=== PATIENT | female | born 1940 | race Caucasian/White ===

== ENCOUNTER → 2018-01-11 | Outpatient (CLI) | payer MEDICARE, BC ==
--- NOTE | 2018-01-11 11:36 | BD ---
EXAMINATION TYPE: MG DEXA axial skeleton. DATE OF EXAM: 01/11/2018 COMPARISON: NONE CLINICAL HISTORY: disorder of bone. Osteoporosis screening. Postmenopausal female. Height: 5'3 Weight: 162 FRAX RISK QUESTIONS: Alcohol (3 or more units per day): no Family History (Parent hip fracture): no Glucocorticoids (More than 3mos): no (Ex: prednisone, prednisolone, methylprednisolone, dexamethasone, and hydrocortisone). History of Fracture in Adulthood: no Secondary Osteoporosis: 1. Type 1 Diabetes: no 2. Hyperthyroidism: no 3. Menopause before 45: no 4. Malnutrition: no 5. Chronic liver disease: no Rheumatoid Arthritis: no Current Tobacco Use: no RISK FACTORS HISTORY OF: Postmenopausal woman: MEDICATIONS: Thyroid Medications: Which medication: Synthroid How Lon years Additional Medications: blood pressure Additional History: skin cancer 2010 EXAM MEASUREMENTS: Bone mineral densitometry was performed using the CiRBA System. Bone mineral density as measured about the Lumbar spine is: ----- L1-L4(G/cm2): 1.144 T Score Values are as follows: ----- L2: -0.5 ----- L3: -0.3 ----- L4: 0.2 ----- L1-L4: -0.3 Bone mineral density about the R hip (g/cm2): 0.812 Bone mineral density about the L hip (g/cm2): 0.859 T Score values are as follows: -----R Neck: -1.6 -----L Neck: -1.3 -----R Total: -1.5 -----L Total: -1.4 IMPRESSION: Osteopenia (T Score between -2.5 and -1) with respect to the bilateral hips. There is slightly increased risk of fracture and the patient may be considered for treatment. Re-Screen 2-5 years. NOTE: T-SCORE=SD OF THE YOUNG ADULT MEAN.
== END | disposition home or self-care (01) ==
LOC: RADBDWWP 10:26
PROVIDERS: ATTEND Family Medicine
DX: M85.852 Other specified disorders of bone density and structure, left thigh (principal); M85.851 Other specified disorders of bone density and structure, right thigh
CPT/HCPCS: 77080

== ENCOUNTER → 2021-07-11 | Outpatient (CLI) | payer MEDICARE, BC ==
--- NOTE | 2021-07-11 11:42 | XR ---
EXAMINATION TYPE: XR chest 2V DATE OF EXAM: 07/11/2021 COMPARISON: Chest x-ray 03/20/2014 HISTORY: R09.89 TECHNIQUE: Frontal and lateral views of the chest are obtained. FINDINGS: There is no focal air space opacity, pleural effusion, or pneumothorax seen. The cardiac silhouette size is within normal limits. Prominent lung volumes suggest possible underlying COPD. The aorta is dense. There is thoracic spondylosis. Mild elevation of the right hemidiaphragm is stable. Some minimal strand-like densities at the lung bases may reflect some atelectasis, scarring, intersti tial changes. The osseous structures are intact. IMPRESSION: There may be some minimal basilar atelectasis or scarring, interstitial changes, correla te for possible COPD. Follow-up as indicated.
== END | disposition home or self-care (01) ==
LOC: RADXRMAIN 09:53
PROVIDERS: ATTEND Family Medicine
DX: R09.89 Other specified symptoms and signs involving the circulatory and respiratory systems (principal)
CPT/HCPCS: 71046

== ENCOUNTER → 2023-05-21 | Outpatient (CLI) | payer MEDICARE ==
--- NOTE | 2023-05-21 18:37 | XR ---
EXAMINATION TYPE: XR chest 2V DATE OF EXAM: 05/21/2023 5:47 PM COMPARISON: Chest radiographs from and 1720 TECHNIQUE: XR chest 2V Frontal and lateral views of the chest. CLINICAL INDICATION:Female, 82 years old with history of M54.6; FINDINGS: Lungs/Pleura: Prominent interstitial lung markings are seen scattered throughout the lungs. No eviden ce of focal consolidation, pneumothorax or pleural effusion. Pulmonary vascularity: Unremarkable. Heart/mediastinum: Cardiomediastinal silhouette is unremarkable. Musculoskeletal: No acute osseous pathology. IMPRESSION: Chronic changes without acute pulmonary process. No significant change from prior.
== END | disposition home or self-care (01) ==
LOC: RADXRMAIN 17:31
PROVIDERS: ATTEND Family Medicine
DX: M54.6 Pain in thoracic spine (principal)
CPT/HCPCS: 71046

== ENCOUNTER → 2023-05-24 | Outpatient (CLI) | payer MEDICARE ==
[2023-05-24 10:32] LABS: NT-Pro-B-Type Natriuretic Pept 89 pg/mL
[2023-05-24 10:34] LABS: African American GFR (CKD) 86 (>60 ml/min/1.73 sqM); Anion Gap 9 mmol/L; Blood Urea Nitrogen 16 mg/dL (7-17); Calcium 9.8 mg/dL (8.4-10.2); Carbon Dioxide 31 mmol/L (22-30); Chloride 97 mmol/L (98-107); Glucose 121 mg/dL (74-99); Non-African American GFR(CKD) 75 (>60 ml/min/1.73 sqM); Potassium 4.3 mmol/L (3.5-5.1); Sodium 137 mmol/L (137-145)
[2023-05-24 15:47] LABS: Basophils # (A) 0.07 X 10*3/uL (0.00-0.10); Basophils % (A) 0.7 %; Eosinophils # (A) 0.15 X 10*3/uL (0.04-0.35); Eosinophils % (A) 1.6 %; HCT 44.8 % (37.2-46.3); HGB 14.4 d/dL (12.0-15.0); Lymphocytes # (A) 2.64 X 10*3/uL (0.90-5.00); Lymphocytes % (A) 28.2 %; MCH 29.9 pg (27.0-32.0); MCHC 32.1 d/dL (32.0-37.0); MCV 93.1 FL (80.0-97.0); Mean Platelet Volume 9.1 FL (9.5-12.2); Monocytes # (A) 0.93 X 10*3/uL (0.20-1.00); Monocytes % (A) 9.9 %; NRBC Per 100 WBC 0 X 10*3/uL (0.00-0.01); Neutrophils # (A) 5.53 X 10*3/uL (1.80-7.70); Neutrophils % (A) 59.3 %; Platelet Count 395 X 10*3/uL (140-440); RBC 4.81 X 10*6/uL (4.10-5.20); RDW 12.3 % (11.5-14.5); WBC 9.35 X 10*3/uL (4.50-10.00)
== END | disposition home or self-care (01) ==
LOC: LABWHC1 09:11
PROVIDERS: ATTEND Family Medicine
DX: I50.9 Heart failure, unspecified (principal)
CPT/HCPCS: 36415; 80048; 83880; 85025

== ENCOUNTER → 2023-06-03 | Outpatient (CLI) | payer MEDICARE ==
[2023-06-03 13:48] LABS: African American GFR (CKD) >90 (>60 ml/min/1.73 sqM); Blood Urea Nitrogen 12 mg/dL (7-17); Non-African American GFR(CKD) 85 (>60 ml/min/1.73 sqM)
--- NOTE | 2023-06-03 19:32 | CT ---
EXAMINATION TYPE: CT abdomen pelvis w con DATE OF EXAM: 06/03/2023 COMPARISON: None INDICATION: Unspecified abdominal pain DLP: 631.40 mGycm, Automated exposure control for dose reduction was used. CONTRAST: 100 ml mL of Isovue 300. Study performed with Oral Contrast TECHNIQUE: Axial images were obtained from above the diaphragm to the pubic rami in the axial plane a t 5 mm thick sections. Reconstructed images are reviewed on the computer in the coronal plane. FINDINGS: Limited CT sections are obtained the lung bases. The lung bases are clear. CT ABDOMEN: Liver: Biliary dilatation is evident. Spleen: Normal Pancreas: Normal Adrenal glands: The adrenal glands are normal. Gallbladder: Not identified. Common bile duct is dilated at 2.3 cm. Kidneys: No masses are evident. No hydronephrosis is present. There is a 2.2 cm cyst on the posteri or lateral left mid kidney. There may be smaller cortical Delayed images were obtained through the k idneys, which remain unremarkable. Aorta: Vascular calcification is within the aorta. Inferior vena cava: Normal. CT PELVIS: Diverticular changes are throughout the colon. No adjacent inflammatory change to suggest acute diver ticulitis. No suspicious dilated loop of bowel is evident. Oral contrast extends to the descending co keiry. Appendix: Normal as visualized. Urinary bladder: Normal. Genitourinary structures: Uterus is normal. Adnexa are normal. Osseous structures: No suspicious lytic or sclerotic lesions. Facet degenerative changes are present. IMPRESSIONS: 1. Biliary dilatation within the liver with a dilated common bile duct extending to the pancreatic h ead. No obstructing etiology is identified. 2. Extensive diverticulosis without acute diverticulitis .
== END | disposition home or self-care (01) ==
LOC: RADCTMAIN 12:17
PROVIDERS: ATTEND Family Medicine
DX: K83.8 Other specified diseases of biliary tract (principal); K57.30 Diverticulosis of large intestine without perforation or abscess without bleeding; R10.9 Unspecified abdominal pain
CPT/HCPCS: 82565; 84520; 74177; 36415; Q9967

== ENCOUNTER → 2024-03-24 | Outpatient (CLI) | payer MEDICARE ==
--- NOTE | 2024-03-24 15:14 | US ---
EXAMINATION TYPE: US venous doppler duplex LE RT DATE OF EXAM: 03/24/2024 2:41 PM COMPARISON: NONE CLINICAL INDICATION: Female, 83 years old with history of R22.41 LOCALIZED SWELLING, MASS AND LUMP, R IGHT LO; Edema right leg for 1 week SIDE PERFORMED: right TECHNIQUE: The lower extremity deep venous system is examined utilizing real time linear array sonog steve with graded compression, doppler sonography and color-flow sonography. VESSELS IMAGED: Common Femoral Vein Deep Femoral Vein Greater Saphenous Vein * Femoral Vein Popliteal Vein Small Saphenous Vein * Proximal Calf Veins (* superficial vessels) Right Leg: no evidence of DVT IMPRESSION: No evidence for DVT within the right lower extremity imaged from the groin to the upper calf.
== END | disposition home or self-care (01) ==
LOC: RADUSWWP 14:20
PROVIDERS: ATTEND Family Medicine
DX: R22.41 Localized swelling, mass and lump, right lower limb (principal)

== ENCOUNTER 2024-05-09 01:28 | Inpatient (IN) | payer MEDICARE ==
[2024-05-09] MEDS: MORPHINE SULFATE 2 MG/ML SYRINGE IVP STA (01:50)
--- NOTE | 2024-05-09 02:19 | ED ---
Fall HPI - General Source: patient, family Mode of arrival: EMS <Laura Bal - Last Filed: 05/09/24 04:08> <Ervin Otoole - Last Filed: 05/09/24 07:27> - General Chief Complaint: Fall Stated Complaint: Fall Time Seen by Provider: 05/09/24 01:40 - History of Present Illness Initial Comments: 83-year-old female brought in by EMS for evaluation post fall. Patient was getting up to walk to the bathroom tonight when she felt dizzy falling over and hitting her head. States that she landed on her face. She is complaining of severe pain to the right shoulder. She denies any loss of consciousness or blood thinners. She admits to soreness in the bilateral lower legs. She denies any nausea, vomiting, vision or hearing changes, numbness, tingling, weakness. No chest pain, difficulty breathing, abdominal pain. (Laura Bal) - Related Data Allergies Allergy/AdvReac Type Severity Reaction Status Date / Time amoxicillin Allergy Rash/Hives Verified 05/09/24 01:32 aspirin Allergy Rash/Hives Verified 05/09/24 01:32 azithromycin [From Zithromax] Allergy Rash/Hives Verified 05/09/24 01:32 captopril [From Capoten] Allergy Rash/Hives Verified 05/09/24 01:32 enalaprilat [From Vasotec] Allergy Rash/Hives Verified 05/09/24 01:32 irbesartan [From Avapro] Allergy Rash/Hives Verified 05/09/24 01:32 oxaprozin [From Daypro] Allergy Rash/Hives Verified 05/09/24 01:32 prochlorperazine Allergy Rash/Hives Verified 05/09/24 01:32 [From Compazine] Review of Systems ROS Other: All systems not noted in ROS Statement are negative. <Laura Bal - Last Filed: 05/09/24 04:08> ROS Other: All systems not noted in ROS Statement are negative. <Ervin Otoole - Last Filed: 05/09/24 07:27> ROS Statement: Those systems with pertinent positive or pertinent negative responses have been documented in the HPI. Past Medical History Past Medical History: Hearing Disorder / Deafness, Hypertension, Thyroid Disorder History of Any Multi-Drug Resistant Organisms: Unobtainable Past Surgical History: Cholecystectomy Past Psychological History: No Psychological Hx Reported Smoking Status: Never smoker Past Alcohol Use History: Occasional Past Drug Use History: None Reported <Laura Bal - Last Filed: 05/09/24 04:08> General Exam Limitations: no limitations General appearance: alert, in no apparent distress Head exam: Present: atraumatic, normocephalic Eye exam: Present: normal appearance, PERRL, EOMI Neck exam: Present: normal inspection. Absent: meningismus Respiratory exam: Absent: respiratory distress Cardiovascular Exam: Present: regular rate Right Shoulder Exam: Present: tenderness. Absent: normal inspection, full ROM Neurological exam: Present: alert, oriented X3 Expanded Eye Response: (4) open spontaneously Motor Response: (6) obeys commands Verbal Response: (5) oriented Alaina Total: 15 Psychiatric exam: Present: normal affect, normal mood Skin exam: Present: abrasion (Abrasions to the face) <Luara Bal - Last Filed: 05/09/24 04:08> Course Vital Signs 05/09/24 05/09/24 01:32 07:01 Temperature 98.2 F Pulse Rate 70 65 Respiratory 18 16 Rate Blood Pressure 148/76 120/69 O2 Sat by Pulse 96 94 L Oximetry Medical Decision Making - Lab Data Result diagrams: 05/09/24 02:33 05/09/24 03:17 <Laura Bal - Last Filed: 05/09/24 04:08> - Lab Data Result diagrams: 05/09/24 02:33 05/09/24 03:17 <Ervin Otoole - Last Filed: 05/09/24 07:27> - Medical Decision Making Was pt. sent in by a medical professional or institution (, PA, UTILITY WORKER [employer], urgent care, hospital, or shelter...) When possible be specific @ -[No] Did you speak to anyone other than the patient for history (EMS, parent, family, police, friend...)? What history was obtained from this source @ -[No] Did you review nursing and triage notes (agree or disagree)? Why? @ -[I reviewed and agree with nursing and triage notes] Were old charts reviewed (outside hosp., previous admission, EMS record, old EKG, old radiological studies, urgent care reports/EKG's, shelter records)? Report findings @ -[No old charts were reviewed] Differential Diagnosis (chest pain, altered mental status, abdominal pain women, abdominal pain men, vaginal bleeding, weakness, fever, dyspnea, syncope, headache, dizziness, GI bleed, back pain, seizure, CVA, palpatations, mental health, musculoskeletal)? @ -Differential Musculoskeletal Muscular strain, contusion, ligament sprain, fracture, arthritis, septic arthritis, bursitis, cellulitis, muscle spasm, nerve compression, DVT, arterial occlusion, herpes zoster, electrolyte abnormality, tumor.... This is not meant to be in all inclusive list EKG interpreted by me (3pts min.). @ -EKG shows sinus rhythm with first-degree AV block. Ventricular rate 68. NH interval 236. QRS 88. QT 413. QTc 430. X-rays interpreted by me (1pt min.). @ -Shoulder x-ray shows displaced fracture involving the surgical neck of the proximal humerus with displacement in relation to the humeral head CT interpreted by me (1pt min.). @ -CT brain and C-spine without contrast is pending U/S interpreted by me (1pt. min.). @ -[None done] What testing was considered but not performed or refused? (CT, X-rays, U/S, labs)? Why? @ -[None] What meds were considered but not given or refused? Why? @ -[None] Did you discuss the management of the patient with other professionals (prof essionals i.e. , PA, [employer], lab, RT, psych nurse, social media director, kinesiology internship, teacher, stream control officer, family service caseworker)? Give summary @ -[No] Was smoking cessation discussed for >3mins.? @ -[No] Was critical care preformed (if so, how long)? @ -[No] Were there social determinants of health that impacted care today? How? (Homelessness, low income, unemployed, alcoholism, drug addiction, transportation, low edu. Level, literacy, decrease access to med. care, [facility], rehab)? @ -[No] Was there de-escalation of care discussed even if they declined (Discuss DNR or withdrawal of care, Hospice)? DNR status @ -[No] What co-morbidities impacted this encounter? (DM, HTN, Smoking, COPD, CAD, Cancer, CVA, ARF, Chemo, Hep., AIDS, mental health diagnosis, sleep apnea, morbid obesity)? @ -[None] Was patient admitted / discharged? Hospital course, mention meds given and route, prescriptions, significant lab abnormalities, going to OR and other pertinent info. @ -83-year-old female presenting for evaluation post fall. Patient fell while walking to the bathroom. States that she was getting dizzy. No chest pain or difficulty breathing. EKG shows sinus rhythm with first-degree AV block. Shoulder x-ray shows displaced fracture involving the surgical neck of the proximal humerus. Remainder of imaging is pending. Patient is signed out to my attending Dr. Otoole. Undiagnosed new problem with uncertain prognosis? @ -[No] Drug Therapy requiring intensive monitoring for toxicity (Heparin, Nitro, Insulin, Cardizem)? @ -[No] Were any procedures done? @ -[No] Diagnosis/symptom? @ -[default] Acute, or Chronic, or Acute on Chronic? @ -[default] Uncomplicated (without systemic symptoms) or Complicated (systemic symptoms)? @ -[default] Side effects of treatment? @ -[No] Exacerbation, Progression, or Severe Exacerbation? @ -[No] Poses a threat to life or bodily function? How? (Chest pain, USA, DC, pneumonia, PE, COPD, DKA, ARF, appy, cholecystitis, CVA, Diverticulitis, Homicidal, Suicidal, threat to staff... and all critical care pts) @ -[No] (Laura Bal) Patient signed out to me pending results of CT imaging. Briefly, patient presented for fall at home. Is not on thinners. Unknown LOC. CT brain and C- spine as interpreted by myself reveals no obvious acute injury or process. Shoulder and tib-fib x-rays interpreted by midlevel provider and radiology. Right shoulder x-ray did reveal a displaced right proximal humeral surgical neck fracture. Patient was placed in a sling. Patient's laboratory studies returned unremarkable. At this time I discussed with patient as well as patient's son. There is concern as she does live alone at home. She is left-handed but does not feel safe going home and I believe this is reasonable due to her age she is a fall risk. Patient be admitted for her debility. I did speak with orthopedics on- call, Ana Laura Bergman who recommended medicine admission despite the fracture as patient likely will not have any acute intervention at this time. I believe this is reasonable. I spoke with [facility] the admitting team who accepted the admission. Diagnosis/symptom? @ -Fall, debility, right proximal humerus fracture Acute, or Chronic, or Acute on Chronic? @ -Acute Uncomplicated (without systemic symptoms) or Complicated (systemic symptoms)? @ -Complicated Side effects of treatment? @ -None Exacerbation, Progression, or Severe Exacerbation] @ -No Poses a threat to life or bodily function? @ -Yes (Ervin Otoole) - Lab Data Lab Results 05/09/24 05/09/24 Range/Units 02:33 03:17 WBC 8.5 (3.8-10.6) k/uL RBC 4.51 (3.80-5.40) m/uL Hgb 13.7 (11.4-16.0) gm/dL Hct 42.7 (34.0-46.0) % MCV 94.6 (80.0-100.0) fL MCH 30.3 (25.0-35.0) pg MCHC 32.0 (31.0-37.0) g/dL RDW 12.7 (11.5-15.5) % Plt Count 275 (150-450) k/uL MPV 7.3 Neutrophils % 62 % Lymphocytes % 23 % Monocytes % 8 % Eosinophils % 4 % Basophils % 0 % Neutrophils # 5.3 (1.3-7.7) k/uL Lymphocytes # 2.0 (1.0-4.8) k/uL Monocytes # 0.7 (0-1.0) k/uL Eosinophils # 0.3 (0-0.7) k/uL Basophils # 0.0 (0-0.2) k/uL Sodium 134 L (137-145) mmol/L Potassium 4.2 (3.5-5.1) mmol/L Chloride 101 (98-107) mmol/L Carbon Dioxide 25 (22-30) mmol/L Anion Gap 8 mmol/L BUN 21 H (7-17) mg/dL Creatinine 0.60 (0.52-1.04) mg/dL Est GFR (CKD-EPI)AfAm >90 (>60 ml/min/1.73 sqM) Est GFR (CKD-EPI)NonAf 85 (>60 ml/min/1.73 sqM) Glucose 146 H (74-99) mg/dL Calcium 9.2 (8.4-10.2) mg/dL Total Bilirubin 0.7 (0.2-1.3) mg/dL AST 148 H (14-36) U/L ALT 91 H (4-34) U/L Alkaline Phosphatase 298 H (38-126) U/L Total Protein 6.9 (6.3-8.2) g/dL Albumin 3.8 (3.5-5.0) g/dL Disposition <Laura Bal - Last Filed: 05/09/24 04:08> Time of Disposition: 06:29 <Ervin Otoole - Last Filed: 05/09/24 07:27> Clinical Impression: Fall, Closed fracture of right proximal humerus, Debility Disposition: ADMITTED IP TO THIS [facility] Condition: Stable
[2024-05-09 02:43] LABS: Basophils % (A) 0 %; Eosinophils # (A) 0.3 k/uL (0-0.7); Eosinophils % (A) 4 %; HCT 42.7 % (34.0-46.0); HGB 13.7 gm/dL (11.4-16.0); Lymphocytes % (A) 23 %; MCH 30.3 pg (25.0-35.0); MCV 94.6 fL (80.0-100.0); Mean Platelet Volume 7.3; Monocytes # (A) 0.7 k/uL (0-1.0); Monocytes % (A) 8 %; Neutrophils # (A) 5.3 k/uL (1.3-7.7); Neutrophils % (A) 62 %; Platelet Count 275 k/uL (150-450); RBC 4.51 m/uL (3.80-5.40); RDW 12.7 % (11.5-15.5); WBC 8.5 k/uL (3.8-10.6)
[2024-05-09 03:45] LABS: Anion Gap 8 mmol/L; Blood Urea Nitrogen 21 mg/dL (7-17); Carbon Dioxide 25 mmol/L (22-30); Chloride 101 mmol/L (98-107); Glucose 146 mg/dL (74-99); Sodium 134 mmol/L (137-145)
[2024-05-09 03:46] LABS: ALT 91 U/L (4-34); African American GFR (CKD) >90 (>60 ml/min/1.73 sqM); Albumin 3.8 g/dL (3.5-5.0); Calcium 9.2 mg/dL (8.4-10.2); Non-African American GFR(CKD) 85 (>60 ml/min/1.73 sqM); Total Bilirubin 0.7 mg/dL (0.2-1.3); Total Protein 6.9 g/dL (6.3-8.2)
[2024-05-09 03:55] LABS: AST 148 U/L (14-36); Alkaline Phosphatase 298 U/L (38-126); Potassium 4.2 mmol/L (3.5-5.1)
--- NOTE | 2024-05-09 04:02 | XR ---
EXAM: XR Right Shoulder, 1 View CLINICAL HISTORY: Fall TECHNIQUE: One view of the right shoulder. COMPARISON: No relevant prior studies available. FINDINGS: Bones/joints: There is a displaced fracture involving the surgical neck of the proximal humerus with displacement in relation to the humeral head. The scapula and clavicle are grossly intact. Degenerative changes of the acromioclavicular joint. The humeral head is presumed maintained within the glenoid. Soft tissues: No significant overlying soft tissue abnormality. IMPRESSION: There is a displaced fracture involving the surgical neck of the proximal humerus with displacement in relation to the humeral head.
[2024-05-09] MEDS: HYDROmorphone 0.5 MG/0.5 ML SYRINGE IVP STA ×2 (04:22→06:37)
--- NOTE | 2024-05-09 04:55 | CT ---
EXAM: CT Head Without Intravenous Contrast CLINICAL HISTORY: Fall TECHNIQUE: Axial computed tomography images of the head/brain without intravenous contrast. CTDI is 45.2 mGy and DLP is 1180 mGy-cm. This CT exam was performed using one or more of the following dose reduction techniques: automated exposure control, adjustment of the mA and/or kV according to patient size, and/or use of iterative reconstruction technique. COMPARISON: No relevant prior studies available. FINDINGS: Brain: No intracranial hemorrhage. No significant mass-effect. Diffuse prominence of the cerebral sulci and sylvian fissures secondary to chronic underlying parenchymal involutional changes. Predominantly periventricular deep white matter hypodense changes noted. Ventricles: No midline shift or ventricular megaly. Bones/joints: Unremarkable. No acute fracture. Soft tissues: No significant overlying acute traumatic soft tissue abnormality. No radiopaque foreign body. Sinuses: Unremarkable as visualized. No acute sinusitis. Mastoid air cells: Minimal left mastoid effusions noted inferiorly. The right mastoid air cells are slightly under pneumatized but are patent. IMPRESSION: No acute intracranial process identified. Incidental chronic underlying presumed age-related findings, as noted above. EXAM: CT Cervical Spine Without Intravenous Contrast CLINICAL HISTORY: Fall TECHNIQUE: Axial computed tomography images of the cervical spine without intravenous contrast. CTDI is 10.6 mGy and DLP is 327.1 mGy-cm. This CT exam was performed using one or more of the following dose reduction techniques: automated exposure control, adjustment of the mA and/or kV according to patient size, and/or use of iterative reconstruction technique. COMPARISON: No relevant prior studies available. FINDINGS: Vertebrae: The vertebral bodies are intact without acute osseous traumatic injury. No anterolisthesis or retrolisthesis is identified. The facet joints are well aligned without subluxation or dislocation. The pedicles, transverse processes and spinous processes are intact. Diffuse bilateral facet hypertrophic changes noted bilaterally. Discs/spinal canal/neural foramina: Multilevel disc space narrowing with marginal hypertrophic osteophyte changes, most prominent anteriorly is noted. No significant osseous central canal stenosis. Soft tissues: Unremarkable. Lung apices: Interlobular septal thickening noted at the lung apices. No evidence for significant acute traumatic injury identified. IMPRESSION: No acute osseous traumatic injury or significant abnormal alignment involving the cervical spine.
--- NOTE | 2024-05-09 05:05 | XR ---
EXAM: XR Bilateral Tibias and Fibulas, 2 Views CLINICAL HISTORY: Fall TECHNIQUE: Frontal and lateral views of the bilateral tibias and fibulas. COMPARISON: No relevant prior studies available. FINDINGS: Bones/joints: Moderately severe degenerative changes involving the right medial compartment. Mild to moderate degenerative changes involving the left medial compartment. Moderate degenerative changes involving the right lateral compartment and patellofemoral compartments. Mild degenerative changes noted involving the left lateral and patellofemoral compartments. Remote traumatic injury suspected involving the left medial malleolus. Mild degenerative changes of both ankles. No acute osseous abnormality. No dislocation. Soft tissues: Prominent soft tissue swelling suggested involving the medial aspect of the right knee. The soft tissues are otherwise unremarkable. No radiopaque foreign body or subcutaneous emphysema. IMPRESSION: No acute osseous traumatic injury or abnormal alignment involving the bilateral tibia and fibulae. Incidental degenerative changes, right side greater than left. Soft tissue swelling suggested involving the medial right knee. No radiopaque foreign body or subcutaneous emphysema.
[2024-05-09] MEDS ORDERED: ACETAMINOPHEN TAB 325 MG TAB PO PRN (06:29)
[2024-05-09] MEDS ORDERED: NALOXONE 0.4 MG/ML 1 ML VIAL IV PRN (06:29)
[2024-05-09] MEDS: HYDROmorphone 0.5 MG/0.5 ML SYRINGE IVP PRN (09:39)
--- NOTE | 2024-05-09 11:19 | CT ---
EXAMINATION TYPE: CT shoulder RT wo con CT DLP: 367.3 mGycm, Automated exposure control for dose reduction was used. DATE OF EXAM: 05/09/2024 11:11 AM COMPARISON: Right shoulder radiograph 05/09/2024 CLINICAL INDICATION:Female, 83 years old with history of right shoulder pain; PHH, Displaced fracture involving the surgical neck of the proximal humerus with displacement in relation to the humeral hea d, per Xray report. TECHNIQUE: Axial images were obtained of the right shoulder without the use of IV contrast. Addition al coronal and sagittal reformatted images and soft tissue and bone window were obtained for review. 3-D reconstruction was created on a separate workstation. FINDINGS: Acute displaced proximal right humeral neck fracture. Minimal comminution. There is approximately 1.2 cm of shortening with medial anterior displacement of the remaining humerus in relation to the humer al head. Surrounding edema identified. Mild AC joint arthropathy identified. No focal muscular atroph y. No radiopaque foreign body identified. Multilevel degenerative changes of the visualized cervicothoracic spine. Subpleural reticular opaciti es identified throughout the visualized right lung. IMPRESSION: Acute displaced fracture of the proximal right humerus at the surgical neck.
[2024-05-09 11:39] LABS: ALT 181 U/L (4-34); AST 408 U/L (14-36); African American GFR (CKD) >90 (>60 ml/min/1.73 sqM); Albumin 3.9 g/dL (3.5-5.0); Alkaline Phosphatase 353 U/L (38-126); Anion Gap 6 mmol/L; Blood Urea Nitrogen 15 mg/dL (7-17); Calcium 9.2 mg/dL (8.4-10.2); Carbon Dioxide 26 mmol/L (22-30); Chloride 104 mmol/L (98-107); Glucose 138 mg/dL (74-99); Non-African American GFR(CKD) 88 (>60 ml/min/1.73 sqM); Sodium 136 mmol/L (137-145); Total Bilirubin 1.3 mg/dL (0.2-1.3); Total Protein 6.9 g/dL (6.3-8.2)
[2024-05-09] MEDS ORDERED: QUEtiapine 25 MG TAB PO PRN (12:54)
--- NOTE | 2024-05-09 13:01 | P.HPIM ---
History of Present Illness Patient is admitted after mechanical fall, found to have a right femoral surgical neck fracture denies any loss of consciousness although complaining of some lightheadedness. I do not have any chest x-ray patient does not have any shortness of breath does have elevated liver enzymes which is slightly worse compared to yesterday patient is presently receiving IV fluids as she was bit hyponatremic. Patient is complaining of severe pain in the right shoulder area. REVIEW OF SYSTEMS: All other systems are negative except those mentioned in the HPI PHYSICAL EXAMINATION: GENERAL: The patient is alert and oriented x3, not in any acute distress. Well developed, well nourished. HEENT: Pupils are round and equally reacting to light. EOMI. No scleral icterus. No conjunctival pallor. Normocephalic, atraumatic. No pharyngeal erythema. No thyromegaly. CARDIOVASCULAR: S1 and S2 present. No murmurs, rubs, or gallops. PULMONARY: Chest is clear to auscultation, no wheezing or crackles. ABDOMEN: Soft, nontender, nondistended, normoactive bowel sounds. No palpable organomegaly. MUSCULOSKELETAL: Deferred to orthopedic surgery EXTREMITIES: No cyanosis, clubbing, or pedal edema. Patient has a right arm sling NEUROLOGICAL: Gross neurological examination did not reveal any focal deficits. SKIN: No rashes. Assessment and plan -Mechanical fall right humeral surgical neck fracture continue with pain medications. Avoid opiates high-dose but will use known low-dose [place] along with Toradol and Tylenol for pain. Orthopedic surgery was consulted -Hyponatremia appears to be clinically hypovolemic, will obtain a BNP. Unknown whether patient has history of congestive heart failure -Elevated liver enzymes will obtain hepatitis panel and ultrasound of the liver gallbladder hepatic congestion is also in differential we will obtain a chest x- ray and a BNP as mentioned above -Dizziness without any echocardiogram monitor monitor for any heart rhythm abnormalities -Hypertension: Hold off Norvasc for now monitor the blood pressure -Hypothyroidism resume levothyroxine DVT prophylaxis: Lovenox subcutaneous Past Medical History Past Medical History: Hearing Disorder / Deafness, Hypertension, Thyroid Disorder History of Any Multi-Drug Resistant Organisms: Unobtainable Past Surgical History: Cholecystectomy Past Psychological History: No Psychological Hx Reported Smoking Status: Never smoker Past Alcohol Use History: Occasional Past Drug Use History: None Reported Medications and Allergies Home Medications Medication Instructions Recorded Confirmed Type Levothyroxine Sodium [Synthroid] 100 mcg PO DAILY 05/09/24 05/09/24 History amLODIPine [Norvasc] 2.5 mg PO HS 05/09/24 05/09/24 History Allergies Allergy/AdvReac Type Severity Reaction Status Date / Time amoxicillin Allergy Rash/Hives Verified 05/09/24 07:56 aspirin Allergy Rash/Hives Verified 05/09/24 07:56 azithromycin [From Zithromax] Allergy Rash/Hives Verified 05/09/24 07:56 captopril [From Capoten] Allergy Rash/Hives Verified 05/09/24 07:56 enalaprilat [From Vasotec] Allergy Rash/Hives Verified 05/09/24 07:56 irbesartan [From Avapro] Allergy Rash/Hives Verified 05/09/24 07:56 oxaprozin [From Daypro] Allergy Rash/Hives Verified 05/09/24 07:56 prochlorperazine Allergy Rash/Hives Verified 05/09/24 07:56 [From Compazine] Physical Exam Vitals: Vital Signs Temp Pulse Resp BP Pulse Ox 05/09/24 12:03 98 F 62 16 138/74 96 05/09/24 09:32 98 F 63 16 152/76 96 05/09/24 07:01 65 16 120/69 94 L 05/09/24 01:32 98.2 F 70 18 148/76 96 Intake and Output 05/08/24 05/09/24 05/09/24 22:59 06:59 14:59 Other: Weight 65.771 kg Results CBC & Chem 7: 05/09/24 02:33 05/09/24 11:14 Labs: Abnormal Lab Results - Last 24 Hours (Table) 05/09/24 05/09/24 Range/Units 03:17 11:14 Sodium 134 L 136 L (137-145) mmol/L BUN 21 H (7-17) mg/dL Glucose 146 H 138 H (74-99) mg/dL AST 148 H 408 H (14-36) U/L ALT 91 H 181 H (4-34) U/L Alkaline Phosphatase 298 H 353 H (38-126) U/L
[2024-05-09] MEDS: KETOROLAC 15 MG/ML 1 ML VIAL IVP PRN (13:19)
--- NOTE | 2024-05-09 13:21 | P.CNOR ---
History of Present Illness - HPI Consult date: 05/09/24 Requesting physician: Ervin Otoole Consult reason: other (Recent fall, Right humeral fracture) History of present illness: History of Presenting Illness Patient is a pleasant 83-year-old female who presented to the ER after a fall. Patient reports that she was ambulating to the restroom and lost her balance and fell onto her right side. Patient's daughter is at bedside. Patient is very hard of hearing, situation and history was obtained from the daughter. Patient is normally independent and lives alone. Daughter states that her brother was at patient's home at the time and was able to get her medical attention. Patient denies any numbness or tingling to the right upper extremity. Patient has past medical history of thyroid disorder, hard of hearing, hypertension. Patient denies any orthopedic history. Review of Systems Pertinent positives and negatives as discussed in HPI, a complete review of systems was performed and all other systems are negative. Physical Examination Inspection: Negative for any open fractures, ecchymosis, significant erythema/ulcers. Sensation: Sensation is equal, symmetric, bilaterally intact throughout the upper and lower extremities Palpation: Tenderness to palpation over the right shoulder and upper right extremity. Range of motion: Patient does have full range of motion left upper and lower extremities on exam. Patient has limited range of motion of the right upper extremity due to fracture and pain. Motor: 4+/5 in all major motor groups in the left upper and lower extremities, 4-/5 in the right upper extremity, patient is unable to do abduction or abduction of the right shoulder due to pain. Special tests: Negative Homans bilaterally. Negative Kris bilaterally. Negative clonus bilaterally. Neurovascular: Radial pulse intact, 2+ bilaterally. Cap refill under 3 seconds in digits upper extremities. Assessment and Plan Mechanical fall with trauma Closed fracture of right proximal humerus Debility At this time we do not recommend any emergent/urgent orthopedic surgical intervention. CT of the right shoulder will be obtained for further evaluation. Patient may follow-up with Dr. Novak in office in 1 week. Orthopedics is signing off at this time. Please do not hesitate to contact us for any further questions. 2. Appreciate medical management 3. Pain management -Continue with oral pain medication, may utilize ice packs for 20min/hr as needed. 6. Activity- Maintain right upper extremity in sling until follow up in office. May remove for showers. Patient will benefit from BISI as she lives alone and will not be able to take care of her ADLs. 7. Appreciate consult I reviewed and discussed this case with my attending Dr. Fish, whom has reviewed this chart and films and is in agreement with assessment and plan of care as outlined above. I have personally seen and examined the patient, performed the documentation and the assessment and plan as written. Number of minutes spent on the visit: 20m. Past Medical History Past Medical History: Hearing Disorder / Deafness, Hypertension, Thyroid Disorder History of Any Multi-Drug Resistant Organisms: Unobtainable Past Surgical History: Cholecystectomy Past Psychological History: No Psychological Hx Reported Smoking Status: Never smoker Past Alcohol Use History: Occasional Past Drug Use History: None Reported Medications and Allergies Home Medications Medication Instructions Recorded Confirmed Type Levothyroxine Sodium [Synthroid] 100 mcg PO DAILY 05/09/24 05/09/24 History amLODIPine [Norvasc] 2.5 mg PO HS 05/09/24 05/09/24 History Allergies Allergy/AdvReac Type Severity Reaction Status Date / Time amoxicillin Allergy Rash/Hives Verified 05/09/24 07:56 aspirin Allergy Rash/Hives Verified 05/09/24 07:56 azithromycin [From Zithromax] Allergy Rash/Hives Verified 05/09/24 07:56 captopril [From Capoten] Allergy Rash/Hives Verified 05/09/24 07:56 enalaprilat [From Vasotec] Allergy Rash/Hives Verified 05/09/24 07:56 irbesartan [From Avapro] Allergy Rash/Hives Verified 05/09/24 07:56 oxaprozin [From Daypro] Allergy Rash/Hives Verified 05/09/24 07:56 prochlorperazine Allergy Rash/Hives Verified 05/09/24 07:56 [From Compazine] Results - Labs Labs: Abnormal Lab Results - Last 24 Hours (Table) 05/09/24 Range/Units 03:17 Sodium 134 L (137-145) mmol/L BUN 21 H (7-17) mg/dL Glucose 146 H (74-99) mg/dL AST 148 H (14-36) U/L ALT 91 H (4-34) U/L Alkaline Phosphatase 298 H (38-126) U/L H & H 05/09/24 Range/Units 02:33 Hgb 13.7 (11.4-16.0) gm/dL Hct 42.7 (34.0-46.0) % Result Diagrams: 05/09/24 02:33 05/09/24 11:14
[2024-05-09] MEDS: FAMOTIDINE 20 MG TAB PO SCH (14:09)
[2024-05-09] MEDS: SENNOSIDES 8.6 MG TAB PO SCH (14:09)
--- NOTE | 2024-05-09 15:27 | XR ---
EXAMINATION TYPE: XR chest 2V DATE OF EXAM: 05/09/2024 COMPARISON: 05/21/2023 HISTORY: 83-year-old female pneumonia TECHNIQUE: PA and lateral views FINDINGS: Heart normal size. Aorta and bony vasculature within normal limits. Hyperinflation with chronic inter stitial prominence. No consolidation or pleural effusion is seen. IMPRESSION: COPD and chronic changes. No definite acute process.
--- NOTE | 2024-05-09 15:50 | US ---
EXAMINATION TYPE: US liver DATE OF EXAM: 05/09/2024 COMPARISON: NONE CLINICAL INDICATION: Female, 83 years old with history of elevated liver enzymes; cholecystectomy, el evated liver TECHNIQUE: Multiple sonographic images of the right upper quadrant are obtained. 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 Liver: very limited views, intercostal images Gallbladder: Surgically absent Evidence for sonographic Zepeda's sign: no CBD: Appear severely dilated. Right Kidney: small in size . No hydronephrosis. Lower pole is obscured by bowel gas shadowing. IMPRESSION: 1. Severely dilated bile duct measuring up to 2.7 cm in caliber. Measured up to 2.3 cm on 06/03/2023. Ampullary stenosis is a consideration. Correlate with alkaline phosphatase and bilirubin levels. 2. Status post cholecystectomy.
[2024-05-09] MEDS: HYDROcodone/APAP 5-325MG 1 EACH TAB PO PRN (16:06)
[2024-05-09] MEDS: MELATONIN 5 MG TABLET PO SCH (22:23)
[2024-05-09 22:51] LABS: Hepatitis A Antibody IgM Nonreactive (Nonreactive); Hepatitis B Core IgM Nonreactive (Nonreactive); Hepatitis B Surface Antigen Nonreactive (Nonreactive); Hepatitis C IgG Antibody Nonreactive (Nonreactive)
[2024-05-10 04:06] LABS: Appearance,Urine Clear (Clear); Bacteria,Urine Moderate /hpf; Bilirubin,Urine Negative (Negative); Blood,Urine Moderate (Negative); Color,Urine Colorless; Glucose,Urine (UA) Negative (Negative); Ketones,Urine Negative (Negative); Leukocyte Esterase,Urine Large (Negative); Mucus,Urine Rare /hpf; Nitrite,Urine Positive (Negative); PH, Urine 6.5 (5.0-8.0); Protein,Urine Negative (Negative); RBC,Urine 2 /hpf (0-5); Specific Gravity,Urine 1.009 (1.001-1.035); Squamous Epithelial Cell,Urine 2 /hpf (0-4); Urobilinogen,Urine <2.0 mg/dL (<2.0); WBC,Urine 10 /hpf (0-5)
[2024-05-10] MEDS: LEVOTHYROXINE 100 MCG TAB PO SCH (06:08)
[2024-05-10 07:51] LABS: Basophils % (A) 0 %; Eosinophils # (A) 0.2 k/uL (0-0.7); Eosinophils % (A) 2 %; HCT 39.2 % (34.0-46.0); HGB 12.3 gm/dL (11.4-16.0); Lymphocytes # (A) 2.1 k/uL (1.0-4.8); Lymphocytes % (A) 23 %; MCH 30.2 pg (25.0-35.0); MCHC 31.3 g/dL (31.0-37.0); MCV 96.6 fL (80.0-100.0); Mean Platelet Volume 7.6; Monocytes # (A) 0.7 k/uL (0-1.0); Monocytes % (A) 8 %; Neutrophils # (A) 6.1 k/uL (1.3-7.7); Neutrophils % (A) 65 %; Platelet Count 238 k/uL (150-450); RBC 4.06 m/uL (3.80-5.40); RDW 12.7 % (11.5-15.5); WBC 9.4 k/uL (3.8-10.6)
[2024-05-10 08:06] LABS: ALT 122 U/L (4-34); AST 140 U/L (14-36); African American GFR (CKD) >90 (>60 ml/min/1.73 sqM); Albumin 3.2 g/dL (3.5-5.0); Alkaline Phosphatase 246 U/L (38-126); Anion Gap 3 mmol/L; Blood Urea Nitrogen 14 mg/dL (7-17); Calcium 9.2 mg/dL (8.4-10.2); Carbon Dioxide 27 mmol/L (22-30); Chloride 108 mmol/L (98-107); Glucose 122 mg/dL (74-99); Magnesium 1.8 mg/dL (1.6-2.3); Non-African American GFR(CKD) 87 (>60 ml/min/1.73 sqM); Potassium 3.8 mmol/L (3.5-5.1); Sodium 138 mmol/L (137-145)
[2024-05-10] MEDS: ENOXAPARIN 40 MG/0.4 ML SYRINGE SQ SCH (09:26)
[2024-05-11] MEDS: amLODIPine 2.5 MG TAB PO SCH (01:27)
[2024-05-11] MEDS: amLODIPine 5 MG TAB PO STA (01:48)
--- NOTE | 2024-05-11 06:41 | P.PN ---
Subjective Progress Note Date: 05/10/24 Patient is admitted after mechanical fall, found to have a right femoral surgical neck fracture denies any loss of consciousness although complaining of some lightheadedness. I do not have any chest x-ray patient does not have any shortness of breath does have elevated liver enzymes which is slightly worse compared to yesterday patient is presently receiving IV fluids as she was bit hyponatremic. Patient is complaining of severe pain in the right shoulder area. 05/10/2024 Patient is seen and evaluated in follow-up today currently sitting up in the chair with a sling noted to the right upper extremity with daughter at the bedside. Patient reports her pain is improved with [place] and mentation is intact. Patient requesting home medications reviewed and resumed. Patient evaluated by orthopedics recommending conservative management at this time and continued PT/OT therapy. Patient lives in the [facility] and has been accepted by [facility] currently awaiting insurance authorization. Case management following and has submitted for insurance authorization. Patient is afebrile with no reports of chest pain or shortness of breath. Patient has been tolerating diet with no reported nausea or vomiting. Patient denies any pain, burning, frequency with urination and denies constipation at this time. Recommend bowel regimen as needed if patient is taking pain medications. Patient is medically stable once insurance authorization is obtained for [facility] Review of systems: Constitutional: No reports of fatigue, fever, or chills Cardiovascular: No reports of chest pain or palpitations Respiratory: No reports of shortness of breath or cough GI: No reports of nausea, vomiting, or diarrhea : No reports of dysuria or retention Neurovascular: No reports of weakness or numbness All medications have been reviewed PHYSICAL EXAMINATION: GENERAL: The patient is alert and oriented x3, not in any acute distress. Well developed, well nourished. Elderly appearing HEENT: Pupils are round and equally reacting to light. EOMI. No scleral icterus. No conjunctival pallor. Normocephalic, atraumatic. No pharyngeal erythema. No thyromegaly. CARDIOVASCULAR: S1 and S2 present. No murmurs, rubs, or gallops. PULMONARY: Chest is clear to auscultation, no wheezing or crackles. ABDOMEN: Soft, nontender, nondistended, normoactive bowel sounds. No palpable organomegaly. MUSCULOSKELETAL: Deferred to orthopedic surgery EXTREMITIES: No cyanosis, clubbing, or pedal edema. Patient has a right arm s ling NEUROLOGICAL: Gross neurological examination did not reveal any focal deficits. Diffusely weak SKIN: No rashes. Assessment: -Mechanical fall, right humeral neck fracture. Evaluated by orthopedic surgery with no plans of surgical intervention at this time recommending conservative management and continued sling use with PT/OT therapy. -Hyponatremia appears to be clinically hypovolemic, improved with gentle hydration -Elevated liver enzymes, trending down -Dizziness, monitor for any heart rhythm abnormalities -Hypertension: Resume home medications including Norvasc -Hypothyroidism DVT prophylaxis: Lovenox subcutaneous GI prophylaxis Full code Plan: Patient was seen and evaluated by orthopedics for the right humeral neck fracture with no plans of surgical intervention at this time recommending considering conservative management. PT/OT therapy evaluation the patient and family are agreeable to ECF for continued strength and mobility. Family lives in the [place] area and case management following placing referrals and patient will also require insurance authorization which was submitted and pending Follow-up on repeat labs and monitor LFTs which are trending down Possible discharge planning in the next 24 to 48 hours to ECF The impression and plan of care has been dictated by Latha Carrillo Nurse Practitioner as directed. Dr. Cecil MD I have performed a history and examination and MDM of this patient, discussed the same with the dictator, and agree with the dictator's assessment and plan as written ,documented as a scribe. Based on total visit time, I have performed more than 50% of the visit. Objective - Vital Signs Vital signs: Vital Signs Temp 98.2 F 05/10/24 07:00 Pulse 67 05/10/24 07:00 Resp 16 05/10/24 07:00 BP 165/81 05/10/24 07:00 Pulse Ox 97 05/10/24 08:50 FiO2 Intake & Output 05/09/24 05/10/24 05/10/24 18:59 06:59 18:59 Intake Total 240 720 110 Output Total 350 Balance 240 370 110 Weight 65.771 kg Intake: Oral 240 720 110 Output: Urine 350 Other: Voiding Method External Catheter Bedside Commode External Catheter # Voids 3 3 - Labs CBC & Chem 7: 05/10/24 07:19 05/10/24 07:19 Labs: Abnormal Lab Results - Last 24 Hours (Table) 05/09/24 05/10/24 05/10/24 Range/Units 11:14 03:07 07:19 Sodium 136 L (137-145) mmol/L Chloride 108 H (98-107) mmol/L Glucose 138 H 122 H (74-99) mg/dL AST 408 H 140 H (14-36) U/L ALT 181 H 122 H (4-34) U/L Alkaline Phosphatase 353 H 246 H (38-126) U/L Total Protein 6.0 L (6.3-8.2) g/dL Albumin 3.2 L (3.5-5.0) g/dL Urine Blood Moderate H (Negative) Urine Nitrite Positive H (Negative) Ur Leukocyte Esterase Large H (Negative) Urine WBC 10 H (0-5) /hpf Urine Bacteria Moderate H (None) /hpf Urine Mucus Rare H (None) /hpf
[2024-05-11 08:25] VITALS: BP 134/73; PULSE 76; RESP 18; TEMP 98
[2024-05-11 10:44] LABS: ALT 95 U/L (8-44); AST 88 U/L (13-35); Albumin 3.3 g/dL (3.8-4.9); Albumin/Globulin Ratio 1.32 Ratio (1.60-3.17); Alkaline Phosphatase 279 U/L (41-126); BUN/Creat Ratio 20.67 Ratio (12.00-20.00); Blood Urea Nitrogen 12.4 mg/dL (9.0-27.0); Calcium 8.8 mg/dL (8.7-10.3); Chloride 104 mmol/L (96-109); Globulin 2.5 g/dL (1.6-3.3); Glucose 113 mg/dL (70-110); Potassium 3.9 mmol/L (3.5-5.5); Sodium 140 mmol/L (135-145); Total Bilirubin 0.6 mg/dL (0.3-1.2); Total Protein 5.8 g/dL (6.2-8.2)
--- NOTE | 2024-05-11 11:12 | CA ---
Transthoracic Echo Report Name: Renuka Moise Age: 83 Gender: F : 1940 Exam Date: 05/10/2024 14:14 Exam Location: Organ Echo Ht (in): 63 Wt (lb): 145 Ordering Physician: Alton Jacob MD Attending/Referring Phys: Rec Therapist Ainsley Mireles RDCS Procedure CPT: Indications: dizziness Cardiac Hx: Technical Quality: Fair Contrast 1: Total Dose (mL): Contrast 2: Total Dose (mL): MEASUREMENTS (Male / Female) Normal Values 2D ECHO LV Diastolic Diameter PLAX 4.0 cm 4.2 - 5.9 / 3.9 - 5.3 cm LV Systolic Diameter PLAX 2.4 cm IVS Diastolic Thickness 0.8 cm 0.6 - 1.0 / 0.6 - 0.9 cm LVPW Diastolic Thickness 0.9 cm 0.6 - 1.0 / 0.6 - 0.9 cm LV Relative Wall Thickness 0.4 RV Internal Dim ED PLAX 1.7 cm LA Systolic Diameter LX 4.4 cm 3.0 - 4.0 / 2.7 - 3.8 cm LV Diastolic Volume MOD BP 43.5 cm??? 67 - 155 / 56 - 104 cm??? LV Systolic Volume MOD BP 14.9 cm??? 22 - 58 / 19 - 49 cm??? LV Ejection Fraction MOD BP 65.6 % >= 55 % LV Cardiac Index MOD BP 1208.7 cm???/min???m??? LV Diastolic Volume MOD 4C 47.8 cm??? LV Systolic Volume MOD 4C 15.6 cm??? LV Ejection Fraction MOD 4C 67.4 % LV Cardiac Index MOD 4C 1363.7 cm???/min???m??? LV Diastolic Length 4C 6.8 cm LV Systolic Length 4C 4.9 cm LV Diastolic Volume MOD 2C 39.8 cm??? LV Systolic Volume MOD 2C 12.9 cm??? LV Ejection Fraction MOD 2C 67.7 % LV Cardiac Index MOD 2C 1142.7 cm???/min???m??? LV Diastolic Length 2C 6.6 cm LV Systolic Length 2C 5.5 cm LA Volume 39.2 cm??? 18 - 58 / 22 - 52 cm??? LA Volume Index 22.7 cm???/m??? 16 - 28 cm???/m??? M-MODE Aortic Root Diameter MM 3.3 cm LA Systolic Diameter MM 3.8 cm LA Ao Ratio MM 1.2 AV Cusp Separation MM 1.5 cm DOPPLER AV Peak Velocity 156.4 cm/s AV Peak Gradient 9.8 mmHg AV Mean Velocity 108.0 cm/s AV Mean Gradient 5.2 mmHg AV Velocity Time Integral 33.9 cm LVOT Peak Velocity 115.8 cm/s LVOT Peak Gradient 5.4 mmHg LVOT Velocity Time Integral 28.6 cm MV Area PHT 2.4 cm??? Mitral E Point Velocity 88.5 cm/s Mitral A Point Velocity 109.5 cm/s Mitral E to A Ratio 0.8 MV Deceleration Time 314.5 ms TR Peak Velocity 228.2 cm/s TR Peak Gradient 20.8 mmHg Right Ventricular Systolic Press 25.8 mmHg FINDINGS Left Ventricle Left ventricular ejection fraction is estimated at 60-65 %. Normal left ventricular systolic function with no obvious regional wall motion abnormalities. Left ventricular cavity size normal. Left ventricular wall thickness normal. Right Ventricle Normal right ventricular size and function. Right ventricular systolic pressure within normal limits. Right Atrium Mild right atrial dilatation. Left Atrium Moderately increased left atrial diameter. Mitral Valve Structurally normal mitral valve. Mitral annular calcification. Trace mitral regurgitation. Aortic Valve Trileaflet aortic valve. Diffuse thickening (sclerosis) of the aortic valve cusps without reduced excursion. Tricuspid Valve Structurally normal tricuspid valve. Mild tricuspid regurgitation. Pulmonic Valve Structurally normal pulmonic valve. Trace pulmonic regurgitation. Pericardium No pericardial or pleural effusion. Aorta Normal size aortic root and proximal ascending aorta. CONCLUSIONS Left ventricular ejection fraction 60-65% RVSP 26 Moderately dilated left atrium Trace mitral regurgitation Mild tricuspid regurgitation No pericardial effusion Previewed by: Dr. Jermain Lombardo DO (Electronically Signed) Final Date: 11 May 2024 11:11
--- NOTE | 2024-05-11 11:29 | P.DS ---
Providers Date of admission: 05/09/24 06:30 Expected date of discharge: 05/10/24 Attending physician: Joceline Sosa Consults: 05/09/24 06:29 Consult Physician Routine Consulting Provider: Abdoul Fish Consult Reason/Comments: right prox humeral fracture. spoke with lulu Do you want consulting provider notified?: Yes Primary care physician: Jaron [facility] Hospital Course: Final diagnosis -Mechanical fall, right humeral neck fracture. Evaluated by orthopedic surgery with no plans of surgical intervention at this time recommending conservative management and continued sling use with PT/OT therapy. -Hyponatremia appears to be clinically hypovolemic, improved with gentle hydration -Elevated liver enzymes, trending down -Dizziness, monitor for any heart rhythm abnormalities -Hypertension: Resume home medications including Norvasc -Hypothyroidism DVT prophylaxis: Lovenox subcutaneous GI prophylaxis Full code Discharge disposition Patient is being discharged in a stable condition with guarded prognosis to [facility]. Patient will follow-up with Dr. Martinez in the outpatient setting upon discharge. Patient is to continue with right arm sling and restrictions on the right arm until follow-up with orthopedics as scheduled. Total time taken is greater than 35 minutes. Hospital course This is a 83-year-old female who was recently admitted with fall underwent a right humeral neck fracture. Patient evaluated by orthopedics recommending conservative management at this time and continue with right sling with outpatient follow-up. Patient having excruciating pain although reports the Neola's are helping. Strongly encourage limiting Neola given her age and would continue with extra strength Tylenol and half a tablet of Neola only if having severe pain. Patient to follow-up outpatient with her primary care provider on discharge. Please refer to other consultation notes for further HPI. Currently no reports of chest pain, shortness of breath, or palpitations. Patient is afebrile. No reports of nausea or vomiting and patient is tolerating diet. Patient will be going to [facility] today. Guarded prognosis and high risk for readmissions. Patient is an extremely high risk of falls as well. Physical exam: Gen: This is a 83-year-old female who is awake, alert and oriented x 2-3, well- developed, elderly appearing, thin built HEENT: Head is atraumatic, normocephalic. Pupils equal, round. Sclerae is anicteric. NECK: Supple. No JVD. No lymphadenopathy. No thyromegaly. LUNGS: Clear to auscultation. No wheezes or rhonchi. No intercostal retractions. HEART: Regular rate and rhythm. No murmur. ABDOMEN: Soft. Bowel sounds are present. No masses. No tenderness. EXTREMITIES: No pedal edema. No calf tenderness. Right upper sling arm noted, positive capillary refill less than 3 seconds NEUROLOGICAL: Patient is awake, alert and oriented x3. Cranial nerves 2 through 12 are grossly intact. Please refer to medication reconciliation sheet for a list of medications. The impression and plan of care has been dictated by Latha Carrillo Nurse Practitioner as directed. Dr. Cecil MD I have performed a history and examination and MDM of this patient, discussed the same with the dictator, and agree with the dictator's assessment and plan as written ,documented as a scribe. Based on total visit time, I have performed more than 50% of the visit. Patient Condition at Discharge: Stable Plan - Discharge Summary Discharge Rx Participant: No New Discharge Prescriptions: New HYDROcodone/APAP 5-325MG [Neola 5-325] 0.5 each PO Q6HR PRN #4 tab PRN Reason: Pain Sennosides [Senokot] 8.6 mg PO BID tab QUEtiapine [SEROquel] 12.5 mg PO HS PRN tab PRN Reason: Agitation Acetaminophen Tab [Tylenol] 650 mg PO Q6HR PRN tab PRN Reason: Mild Pain Or Fever > 100.5 Enoxaparin [Lovenox] 40 mg SQ DAILY each Famotidine [Pepcid] 20 mg PO BID tab Continue amLODIPine [Norvasc] 2.5 mg PO HS Levothyroxine Sodium [Synthroid] 100 mcg PO DAILY Discharge Medication List Levothyroxine Sodium [Synthroid] 100 mcg PO DAILY 05/09/24 [History] amLODIPine [Norvasc] 2.5 mg PO HS 05/09/24 [History] Acetaminophen Tab [Tylenol] 650 mg PO Q6HR PRN tab 05/11/24 [Rx] Enoxaparin [Lovenox] 40 mg SQ DAILY each 05/11/24 [Rx] Famotidine [Pepcid] 20 mg PO BID tab 05/11/24 [Rx] HYDROcodone/APAP 5-325MG [Neola 5-325] 0.5 each PO Q6HR PRN #4 tab 05/11/24 [Rx] QUEtiapine [SEROquel] 12.5 mg PO HS PRN tab 05/11/24 [Rx] Sennosides [Senokot] 8.6 mg PO BID tab 05/11/24 [Rx] Follow up Appointment(s)/Referral(s): Jaron Martinez DO [Primary Care Provider] - 1-2 days Abdoul Fish DO [Doctor of Osteopathic Medicine] - 1 Week Activity/Diet/Wound Care/Special Instructions: Patient is going to [facility] for continued PT/OT therapy Activity as tolerated with restrictions of keeping the right upper extremity in a sling until follow-up with orthopedics Continue with right arm sling and may remove for showers Follow-up with orthopedics outpatient in 1 to 2 weeks Follow-up primary care provider on discharge Discharge Disposition: TRANSFER TO [facility]/F
== END 2024-05-11 12:25 | DRG 563 ==
LOC: EC 01:28 → 1SOBS 06:30 → 4SSUR 05-10 15:55
PROVIDERS: ADMIT Hospitalist; ATTEND Hospitalist
DX: S42.211A Unspecified displaced fracture of surgical neck of right humerus, initial encounter for closed fracture (principal); E87.1 Hypo-osmolality and hyponatremia; S00.81XA Abrasion of other part of head, initial encounter; E03.9 Hypothyroidism, unspecified; H91.90 Unspecified hearing loss, unspecified ear; I10 Essential (primary) hypertension; I08.1 Rheumatic disorders of both mitral and tricuspid valves; R74.01 Elevation of levels of liver transaminase levels; R42 Dizziness and giddiness; W01.0XXA Fall on same level from slipping, tripping and stumbling without subsequent striking against object, initial encounter; E86.1 Hypovolemia; Z79.890 Hormone replacement therapy; K83.8 Other specified diseases of biliary tract; Z91.81 History of falling; Z88.1 Allergy status to other antibiotic agents; Z88.6 Allergy status to analgesic agent; Z88.8 Allergy status to other drugs, medicaments and biological substances; Z90.49 Acquired absence of other specified parts of digestive tract
CPT/HCPCS: 36415; 70450; 71046; 72125; 76705; 80053; 80074; 81001; 83735; 85025; 93005; 93306; 94760; 96374; 96375; 96376; 99285